=== PATIENT | female | born 1930 | race Caucasian/White ===

== ENCOUNTER 2019-04-03 13:44 | Emergency (ER) | payer MEDICARE, BC ==
[~2019-04-03] VITALS: Ht 165.1 cm; Wt 73.9 kg
[~2019-04-03 13:44] MED LIST: AMLODIPINE BESYL5 MG PO; AMOXICILLIN500 MG PO; ASPIRIN EC81 MG PO; B-121000 MC2 PO; B-12500 MCG PO; CARTIA XT240 MG PO; COZAAR50 MG PO; FUROSEMIDE40 MG PO; HYDRALAZINE HCL25 MG PO; L-LYSINE600 MG PO; LEVOTHYROXINE137 MCG PO; LO-DOSE ASPIRIN81 M1 PO; MACROBID 100 M100 MG PO; MELATIN3 MG PO; METOPROLOL SUCC50 MG PO; MULTI-VITAMIN1 EAC1 PO; NIFEDICAL XL60 MG PO; NORCO 5-325 TA1 EACH PO; OCUVITE EYE +1 EACH PO; OMEPRAZOLE20 MG PO; PRADAXA150 MG PO; SIMVASTATIN20 MG PO; SODIUM CHLORIDE1 GM PO; TOPROL XL100 MG PO; TOPROL XL50 MG PO; ULTRAM50 MG PO; VITAMIN B122500 MCG PO; VITAMIN D-32000 UNI1 PO; WARFARIN SODIUM5 MG PO; XARELTO10 MG PO; ZOFRAN ODT8 MG PO; ZOLOFT25 MG PO
[2019-04-03] MEDS ORDERED: NORCO 5-325 TA1 EACH PO (17:17)
== END 2019-04-03 17:57 | disposition home or self-care (01) ==
LOC: ED 13:44
DX: S42.212A Unspecified displaced fracture of surgical neck of left humerus, initial encounter for closed fracture (principal); W18.30XA Fall on same level, unspecified, initial encounter; I10 Essential (primary) hypertension; E78.00 Pure hypercholesterolemia, unspecified; E03.9 Hypothyroidism, unspecified; I48.91 Unspecified atrial fibrillation; Z87.891 Personal history of nicotine dependence; Z88.8 Allergy status to other drugs, medicaments and biological substances; Z88.2 Allergy status to sulfonamides; Z79.899 Other long term (current) drug therapy
CPT/HCPCS: 73030; 96374; 96375; 99283-25; J1170; J1885; J2405

== ENCOUNTER 2019-05-27 08:48 | Inpatient (IN) | payer MEDICARE, BC ==
[~2019-05-27] VITALS: Ht 165.1 cm; Wt 49.0 kg
[~2019-05-27 08:48] MED LIST changes: +CENTRUM SILVER1 EAC5 PO; -MULTI-VITAMIN1 EAC1 PO; -TOPROL XL50 MG PO; -VITAMIN D-32000 UNI1 PO; +VITAMIN D32000 UNI1 PO
--- NOTE | 2019-05-27 17:14 | NUR ---
PT ARRIVED TO MED SURG ROOM 109. CALL LIGHT AND H2O IN REACH. PT ALERT BUT MUMBLES WITH SPEECH AND IS DIFFICULT TO UNDERSTAND. ASSESSMENT COMPLETED. NO NEEDS OR CONCNERNS VOICED.
--- NOTE | 2019-05-27 19:14 | NUR ---
RECEIVED REPORT FROM OMAIRA KUMAR. pt RESTING IN BED, CONFUSED ABOUT LOCATION. REORIENTED. VITALS TAKEN. REQUESTED BLADDER SCAN, LINUX SYSTEM ENGINEER TO COMPLETE. WHITEBOARD UPDATED. BED ALARM ON. CURTAIN OPEN TO NURSES STATION.
--- NOTE | 2019-05-27 19:43 | NUR ---
PT HAS YET TO VOID SINCE ADMIT, BLADDER SCAN COMPLETED AND SHOWS 853ML FLUID RETENTION. DR COLLINS NOTIFIED AND REPORT GIVEN TO SAMAN CASTANO FOR NEED FOR STRAIGHT CATH X1 NOW PER MD. NO FURTHER ORDERS A THIS TIME.
--- NOTE | 2019-05-27 20:42 | NUR ---
pt CONFUSED, SPEECH GARBLED AT TIMES. NEURO CHECKS NEGATIVE. ASSESSMENT DONE. STRAIGHT CATH DONE, LARGE OUTPUT. MEDICATION GIVEN (SEE MAR). ABLE TO REDIRECT pt. BED ALARM ON. WILL CONTINUE TO MONITOR.
--- NOTE | 2019-05-27 21:35 | NUR ---
CALLED MD REGARDING HIGH BP, NO NEW ORDERS AT THIS TIME. MD REQUESTED TO BE NOTIFIED IF SYSTOLIC IS OVER 200 OR DIASTOLIC IS OVER 120.
--- NOTE | 2019-05-27 23:50 | NUR ---
pt HAD BOTH LEGS OUT OF BED. BED ALARM ON. ASSISTED pt TO SITTING POSITION, CONFUSED AND UNABLE TO STAND. USED SARITA TO REPOSITION IN BED WITH SECOND RN. pt TOLERATED MOVEMENT WELL. TUCKED IN. BED ALARM ON. CURTAIN OPEN TO NURSES STATION.
--- NOTE | 2019-05-28 00:53 | NUR ---
ROUNDED ON pt. RESTING WITH EYES CLOSED, RESPIRATIONS REGULAR AND UNLABORED. WOKE WHEN VITALS WERE TAKEN BUT QUICKLY FELL BACK TO SLEEP. BED ALARM ON. CURTAIN OPEN TO NURSES STATION.
--- NOTE | 2019-05-28 02:27 | NUR ---
pt RESTING IN BED. VITALS TAKEN, LAB TECHNOLOGIST CHANGED pt. pt DROWSY. RESPONDED TO NEURO CHECK "YES I CAN" WITHOUT DOING ACTION. PUPILS EQUAL, PELLETISING EXTRUDER OPERATOR EQUAL. MEDICATION GIVEN (SEE MAR). ASSESSMENT DONE. BED ALARM ON. CURTAIN OPEN TO THE NURSES STATION.
--- NOTE | 2019-05-28 05:43 | NUR ---
pt LAYING IN BED. IV PULLED BY pt. pt HAD WET ATTENDS. GAVE FULL BED BATH. CHANGED SHEETS. DEPENDS IN PLACE. HOLLOW CORE DOOR FRAME ASSEMBLER RECORDED VITALS. OMAIRA CASTRO IN ROOM TO PLACE NEW IV.
--- NOTE | 2019-05-28 07:10 | NUR ---
PT RESTING IN SEMIFOWLERS POSITION IN BED. PT ALERT AND ORIENTED CALL LIGHT AND H2O IN REACH. HEADING AND PRIMING TOOL SETTER IN TO ASSIST IN CHANGING PATIENT. NO FURHTER NEEDS OR CONCERNS VOICED.
--- NOTE | 2019-05-28 08:00 | NUR ---
PATIENT WAS INCONTINENT. BED HAS BEEN CHANGED. CALL LIGHT IN REACH. SHE IS UP IN THE CHAIR. NO FURTHER NEEDS AT THIS TIME. WARM WASHCLOTH OFFERED.
--- NOTE | 2019-05-28 09:04 | NUR ---
PT RESTING RECLINED IN CHAIR WITH EYES CLOSED AND RESPIRATIONS EVEN AND UNLABORED. PT ALERT TO VOICE BUT FALLS BACK TO SLEEP EASILY. AM MEDS ADMINISTERED AND ASSESSMENT COMPLETED CALL LIGHT AND H2O IN REACH. NO NEEDS OR CONCERNS VOICED.
--- NOTE | 2019-05-28 09:19 | NUR ---
ABLE TO REACH APRIL- MURALI @ [phone], COMPLETED MRI SCREENING FORM, CALL PLACED TO RADIOLOGY AND INFORMED FORM IS COMPLETE, CHECKING TO SEE IF MRI CAN BE DONE TODAY, DR COLLINS NOTIFIED.
--- NOTE | 2019-05-28 12:30 | NUR ---
PT SITTING UP IN CHAIR ALERT BUT CONFUSED TO PLACE AND DATE. ASSESSMENT COMPLETED. PT REORIENTED AND SPEECH IS MUCH IMPROVED AND MOSTLY CLEAR NOW. CALL LIGHT AND H2O IN REACH. PHONE CALL PLACED TO PT'S FAMILY MEMBER PER PT REQUEST. UPDATED ON PT'S CONFDITION.
[2019-05-28] MEDS ORDERED: WELLBUTRIN XL150 MG PO (14:55)
[2019-05-28] MEDS ORDERED: ACETYL L-CARNI500 MG PO (15:00)
[2019-05-28] MEDS ORDERED: COZAAR50 MG PO (15:03)
[2019-05-28] MEDS ORDERED: METAMUCIL660 GM PO (15:03)
[2019-05-28] MEDS ORDERED: MELATONIN3 MG PO (15:04)
[2019-05-28] MEDS ORDERED: STOOL SOFTENER100 MG PO ×2 (15:05→15:11)
[2019-05-28] MEDS ORDERED: METOPROLOL SUC100 MG PO (15:06)
[2019-05-28] MEDS ORDERED: TYLENOL325 MG PO (15:10)
--- NOTE | 2019-05-28 15:11 | NUR ---
MED REC COMPLETE
--- NOTE | 2019-05-28 17:13 | NUR ---
IN TO SEE PATIENT. PT IS ALERT AND ORIENTED TO PERSON BUT FORGETFUL TO SITUATION AND DATE. SPEECH MOSTLY CLEAR AT THIS TIME WITH ONLY A FEW GARBLED WORDS DURING ASSESSMENT. PM MED ADMINISTERED. CALL LIGHT AND H2O IN REACH.
--- NOTE | 2019-05-28 18:15 | NUR ---
IN TO SEE PATIENT, MANUAL BP TAKEN D/T PT MOVING ARM FREQUENTLY DURING ATTEMPTS TO TAKE AUTOMATIC BP. CALL LIGHT AND H2O IN REACH. PT WATCHING [employer] MOVIE ON TV. NO NEEDS OR CONCENRS VOICED.
--- NOTE | 2019-05-28 19:03 | NUR ---
RECEIVED REPORT FROM OMAIRA KUMAR. pt RESTING IN BED. SPEECH CLEAR. NO REQUESTS AT THIS TIME. CALL LIGHT WITHIN REACH. WHITEBOARD UPDATED. BED ALARM ON.
--- NOTE | 2019-05-28 21:47 | NUR ---
pt RESTING WITH EYES CLOSED, VITALS DONE. pt WOKE BRIEFLY, THEN WOKE TO TAKE MEDICATION (SEE MAR). SWALLOWED WELL. NEUROS NEGATIVE. pt DENIES PAIN AT THIS TIME. NO REQUESTS. BED ALARM ON. CURTAIN OPEN TO THE NURSES STATION.
--- NOTE | 2019-05-28 23:50 | NUR ---
ROUNDED ON pt. RESTING WITH EYES CLOSED, RESPIRATIONS REGULAR AND UNLABORED. CALL LIGHT WITHIN REACH.
--- NOTE | 2019-05-29 01:24 | NUR ---
VITALS AND I&OS DONE AND CHARTED. CHANGED HER ATTENDS, THEY WERE DRY. WE DID A BLADDER SCAN ON HER. BEDSIDE TABLE AND CALL LIGHT IN REACH.
--- NOTE | 2019-05-29 02:00 | NUR ---
SPOKE WITH MD REGARDING NO URINE OUTPUT. NO NEW ORDERS AT THIS TIME.
--- NOTE | 2019-05-29 03:30 | NUR ---
REPOSITIONED pt. BED ALARM ON. CURTAIN OPEN TO NURSES STATION.
--- NOTE | 2019-05-29 05:59 | NUR ---
BLADDER SCANNED PT . INFORMED HER RN SAMAN
--- NOTE | 2019-05-29 06:28 | NUR ---
WOKE pt FOR MEDICATION. SWALLOWED WELL. NEURO CHECK NEGATIVE. NO REQUESTS AT THIS TIME. BED ALARM ON. CURTAIN OPEN TO THE NURSES STATION.
--- NOTE | 2019-05-29 07:18 | NUR ---
PT RESTING SUPINE IN BED EYES CLOSED AND RESPIRATIONS EVEN AND UNLABORED. CALL LIGHT AND H2O IN REACH. PT APPEARS TO BE SLEEPING COMFORTABLY.
--- NOTE | 2019-05-29 08:36 | NUR ---
PT SITTING UP IN CHAIR ALERT AND ORIENTED TO PERSON AND PLACE AND REORIENTED TO DATE AND SITUATION. ASSESSMENT COMPLETED AND AM MEDS ADMINISTERED. PT SITTING UP EATING BREAKFAST. NO NEEDS OR CONCERNS VOICED. CALL LIGHT AND H2O IN REACH.
--- NOTE | 2019-05-29 09:05 | NUR ---
PT SITTING UP IN CHAIR EATING BREAKFAST. PT ASSISTED UP TO BSC WITH HEAVY 2PA. PT'S LEGS VERY UNSTEADY. PT ASSISTED BACK TO CHAIR WITH 3PA BY MOVING BSC FROM BEHIND PT AND REPLACING IT WITH CHAIR. PT NOT TOLERATING ANY AMBULATION AT THIS TIME.
--- NOTE | 2019-05-29 10:06 | NUR ---
PT PROVIDED WITH FRESH ICE WATER AND WARM BLANKETS PER PT REQUEST. CALL LIGHT IN REACH. PT DENIES FURTHER NEEDS OR CONCERNS.
--- NOTE | 2019-05-29 10:10 | NUR ---
PATIENT UP IN CHAIR. WATER REFRESHED. CALL LIGHT IN REACH. NO FURTHER NEEDS AT THIS TIME.
--- NOTE | 2019-05-29 11:40 | NUR ---
PT SITTING UP IN CHAIR. CALL LIGHT AND H2O IN REACH. NO NEEDS OR CONCERNS VOICED AND PT APPEARS TO BE IN NO ACUTE DISTRESS.
--- NOTE | 2019-05-29 13:01 | NUR ---
PT SITTING UP IN CHAIR EATING LUNCH. CALL LIGHT AND H2O IN REACH NO NEEDS OR CONCERNS VOICED. PT ALERT AND ORIENTED X3 AT THIS TIME.
--- NOTE | 2019-05-29 13:46 | NUR ---
PT SITTING UP IN CHAIR ALERT AND ORIENTED TO SELF AND PLACE. PT REORIENTED TO SITUATION AND DATE. PT ASSESSMENT COMPLETED. CALL LIGHT AND H2O IN REACH. NO NEEDS OR CONCERNS VOICED.
--- NOTE | 2019-05-29 14:12 | NUR ---
PT REPORTS SHE IS UNABLE TO SEE HER LUNCH TRAY THAT IS IN FRONT OF HER TO HER LEFT SIDE. PT ALSO HAS INCREASED CONFUSION AND VERY FORGETFUL. SPEECH REMAINS CLEAR. DR COLLINS NOTIFIED OF PT'S NEW S/SX'S AND IS IN TO SEE PATIENT.
--- NOTE | 2019-05-29 14:16 | NUR ---
VS'S TAKEN AND PT TO CT AT THIS TIME WITH TOMASZ CASTANO PER MD REQUEST.
--- NOTE | 2019-05-29 14:25 | NUR ---
PT REMIANS IN CT AT THIS TIME. RAPID RESPONSE CALLED AND NURSING DIGITAL MARKETING ASSOCIATE NOTIFIED OF NEED FOR STROKE ROBOT.
--- NOTE | 2019-05-29 15:33 | NUR ---
TOOK PT ON BED TO CT. ASSITED MEÑO IN TRANSFERING TO CT BED. FLUSHED IV, WNL. 1ST CT WITH CONTRAST SHE STATED SHE COULD FEEL THE COLD IN HER ARM AND RAISED HER HEAD TO LOOK AT HER ARM. FLUSHED AGAIN AND INSTRUCTED HER TO LIE STILL AND THAT IT WOULD AGAIN BE COLD. PT REMAINED STILL THIS TIME. PUSHED PT BACK TO FLOOR WHERE THE STROKE BOT WAS WAITING TO ASSESS.
--- NOTE | 2019-05-29 15:38 | NUR ---
[facility] contacted per OMAIRA Vergara.
--- NOTE | 2019-05-29 15:40 | NUR ---
Loading dose of TPA administered after DR Ramirez and Dr Jorgensen discussed risks and benafits with family and family agrees with administration.
--- NOTE | 2019-05-29 16:45 | NUR ---
[facility] RN EDNA FULLER AND [facility] CREW ARRIVE, REPORT GIVEN AND ALL QUESTIONS ANSWERED. [facility] STROKE SCALE REMAINS UNCHANGED AT 17. PT UNABLE TO FEEL LEFT SIDE AND HAS VISUAL NEGLECT TO LEFT VISUAL FIELD. FAMILY AT BEDSIDE AND WILL FOLLOW PATIENT TO [facility].
== END 2019-05-29 16:45 | disposition short-term general hospital (02) | DRG 64 ==
LOC: ED 08:48 → MS 12:34
PROVIDERS: ADMIT Internal Medicine
DX: I63.9 Cerebral infarction, unspecified (principal); G93.41 Metabolic encephalopathy; R41.4 Neurologic neglect syndrome; I48.21 Permanent atrial fibrillation; R20.1 Hypoesthesia of skin; E86.0 Dehydration; K21.9 Gastro-esophageal reflux disease without esophagitis; I10 Essential (primary) hypertension; E78.5 Hyperlipidemia, unspecified; E03.9 Hypothyroidism, unspecified; R33.9 Retention of urine, unspecified; Z88.8 Allergy status to other drugs, medicaments and biological substances; Z88.1 Allergy status to other antibiotic agents; Z88.2 Allergy status to sulfonamides; Z87.891 Personal history of nicotine dependence; Z85.3 Personal history of malignant neoplasm of breast; Z79.82 Long term (current) use of aspirin; Z79.891 Long term (current) use of opiate analgesic; Z79.899 Other long term (current) drug therapy
CPT/HCPCS: 70450; 70498; 70551; 71045; 80053; 81001; 84484; 85025; 85610; 96374; 97110; 97116; 97163; 99285-25; C9113; J1650; J2997; J7040; J7121; Q9967